=== PATIENT | female | born 1955 | race Caucasian/White ===

== ENCOUNTER 2025-05-29 13:04 | Outpatient (OUT) | payer MEDICARE, SELFPAY ==
--- NOTE | 2025-05-29 | US_ITS ---
The [address] [address] Patient Name: ALAINA DAMON MRN: [id number] date: 1955 Sex: F Assigned Patient Location: [place] Current Patient Location: [place] Accession/Order Number: [id number] Exam Date: 05/29/2025 13:15 Report Date: 05/29/2025 14:48 At the request of: ERIKA HUBBARD VICE PRESIDENT DIGITAL STRATEGIST Procedure: US abdomen limited LIMITED ABDOMINAL ULTRASOUND: CLINICAL HISTORY: PALPABLE MASS COMPARISON: Comparison: None FINDINGS: At the site of clinical concern, there is a 5 x 7 x 4 mm subcutaneous lesion increased echogenicity noted which may represent focal lipoma versus focal soft tissue contusion. No increased vascularity. US/US abdomen limited IMPRESSION: Subcentimeter signal abnormality worrisome for possible lipoma versus focal contusion injury. Clinical correlation and clinical follow-up recommended. Impression dictated by: Marvin Krishna M.D. 05/29/2025 2:48 PM Dictation Location: [place] [address] Electronically authenticated by: [id number] Y Date: 05/29/2025 14:48
== END 2025-05-29 13:05 | disposition home or self-care (01) ==
LOC: US 13:09
PROVIDERS: PCP Nurse Practitioner Family; Visit Provider Nurse Practitioner Family
DX: R19.02 Left upper quadrant abdominal swelling, mass and lump (principal)
CPT/HCPCS: 76705